=== PATIENT | female | born 1995 | race Caucasian/White ===

== ENCOUNTER 2017-05-15 15:54 | Emergency (ER) | payer BC, MEDICAID ==
[2017-05-15 16:09] VITALS: BP 124/81
[2017-05-15] MEDS ORDERED: diphenhydrAMINE 50 MG/ML SDV IM ONE (16:21)
[2017-05-15] MEDS ORDERED: Metoclopramide 10 MG/2 ML SDV IM ONE (16:21)
[2017-05-15] MEDS ORDERED: Ketorolac 60 MG/2 ML SDV IM ONE (16:21)
--- NOTE | 2017-05-15 16:27 | EDM.PDOC ---
ED HPI GENERAL MEDICAL PROBLEM - General Chief Complaint: Headache Stated Complaint: HEADACHE/VOMITING Time Seen by Provider: 05/15/17 16:23 Source of Information: Reports: Patient History Limitations: Reports: No Limitations - History of Present Illness INITIAL COMMENTS - FREE TEXT/NARRATIVE: 22-year-old female presents for evaluation treatment of a headache. Patient reports that the headaches are located in the bilateral temples. Reports that it started yesterday afternoon. Reports associated symptoms of nausea, vomiting , photophobia, phonophobia, dizziness and neck pain. She reports that she has vomited about 4 times today. No fevers, earaches, sore throat or sinus pressure. Patient has taken Excedrin and Tylenol with no relief. Patient reports a history of migraine headaches and states that this one feels similar. She is not currently on any medications for her migraines. She has had a good appetite and has been eating and drinking like normal. Denies any chest . Reports that her last period was about a week and a half ago. She is not any oral contraceptives. Patient reports that she did have to miss work today due to the severity of her migraine. 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) Other OB/BYN History: menorrhagia Neurological History: Reports: Headaches, Chronic Psychiatric History: Reports: Anxiety, Depression - Past Surgical History GI Surgical History: Reports: Appendectomy Social & Family History - Family History Family Medical History: Noncontributory - Tobacco Use Smoking Status *Q: Current Every Day Smoker Years of Tobacco use: 10 Packs/Tins Daily: 0.5 Used Tobacco, but Quit: Yes Month Tobacco Last Used: may Second Hand Smoke Exposure: No - Caffeine Use Caffeine Use: Reports: Coffee, Energy Drinks, Soda - Alcohol Use Days Per Week of Alcohol Use: 1 Number of Drinks Per Day: 1 Total Drinks Per Week: 1 - Recreational Drug Use Recreational Drug Use: No Recreational Drug Type: Reports: Methamphetamine Recreational Drug Use Frequency: Not Used In Over 6 Months ED ROS GENERAL - Review of Systems Review Of Systems: See Below Constitutional: Denies: Fever, Decreased Appetite HEENT: Reports: Other (reports photophobia and phonophobia). Denies: Ear Pain, Throat Pain Musculoskeletal: Reports: Neck Pain Neurological: Reports: Dizziness. Denies: Syncope - Physical Exam Exam: See Below Exam Limited By: No Limitations General Appearance: Alert, WD/WN, No Apparent Distress Eye Exam: Bilateral Eye: PERRL Ears: Normal External Exam, Normal Canal, Hearing Grossly Normal, Normal TMs Nose: Normal Inspection Throat/Mouth: Normal Inspection, Normal Lips, Normal Voice, No Airway Compromise Respiratory/Chest: No Respiratory Distress, Lungs Clear, Normal Breath Sounds Cardiovascular: Normal Peripheral Pulses, Regular Rate, Rhythm, No Murmur Neuro Exam (Abbreviated): Alert, Oriented, Normal Cognition, Normal Gait Psychiatric: Normal Affect, Normal Mood Skin Exam: Warm, Dry, Normal Color Course - Vital Signs Last Recorded V/S: Last Vital Signs Temp 36.5 C 05/15/17 16:06 Pulse 70 05/15/17 16:06 Resp 18 05/15/17 16:06 BP 124/81 05/15/17 16:06 Pulse Ox 100 05/15/17 16:06 - Orders/Labs/Meds Meds: Medications Discontinued Medications Generic Name Dose Route Start Last Admin Trade Name Samuel PRN Reason Stop Dose Admin Cyclobenzaprine HCl 10 mg 05/15/17 17:35 05/15/17 17:49 Flexeril PO 05/15/17 17:36 10 mg ONETIME ONE Administration Diphenhydramine HCl 50 mg 05/15/17 16:21 05/15/17 16:35 Benadryl IM 05/15/17 16:22 50 mg ONETIME ONE Administration Ketorolac Tromethamine 60 mg 05/15/17 16:21 05/15/17 16:33 Toradol IM 05/15/17 16:22 60 mg ONETIME ONE Administration Metoclopramide HCl 10 mg 05/15/17 16:21 05/15/17 16:32 Reglan IM 05/15/17 16:22 10 mg ONETIME ONE Administration - Re-Assessments/Exams Free Text/Narrative Re-Assessment/Exam: 05/15/17 17:35 Patient reports that her headache is improving. Currently as a 6 or 7 out of 10. Nausea has improved. Gave the options of going home and resting versus from additional medication. Will attempt to control her headache with flexeril as I feel this is likely a tension headache. 05/15/17 19:15 Patient is currently sleeping at this time. 05/15/17 19:45 Patient reports that her headache is gone and feels comfortable going home at this time. Will discharge home. Discharge instructions as documented. Departure - Departure Time of Disposition: 19:45 Disposition: Home, Self-Care 01 Condition: Good Clinical Impression: Tension-type headache - Discharge Information Instructions: Tension Headache, [id number] Referrals: PCP,None [Primary Care Provider] - Forms: ED Department Discharge, ED Return to Work/School Form Additional Instructions: Go home and rest in a dark quiet room. Take [id number] Tylenol or Motrin as needed for pain relief. Follow up with family medicine if migraine headaches continue to be a problem for you. Please return to the ER if your symptoms change or worsen.
[2017-05-15] MEDS ORDERED: Cyclobenzaprine 10 MG Tab PO ONE (17:35)
== END 2017-05-15 20:00 | disposition home or self-care (01) ==
LOC: JD.ED 15:54
DX: G44.209 Tension-type headache, unspecified, not intractable (principal); F17.210 Nicotine dependence, cigarettes, uncomplicated; Z88.0 Allergy status to penicillin; Z79.899 Other long term (current) drug therapy
CPT/HCPCS: 96372; 99283; A9270; J1200; J1885; J2765

== ENCOUNTER 2017-11-14 22:10 | Emergency (ER) | payer OTHER, BC, MEDICAID ==
[2017-11-14 22:16] VITALS: BP 131/86
[2017-11-14] MEDS ORDERED: Lidocaine 1% 10 ML MDV INJECT ONE (22:34)
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
== END 2017-11-14 23:15 | disposition home or self-care (01) ==
LOC: JD.ED 22:10
DX: S01.512A Laceration without foreign body of oral cavity, initial encounter (principal); S13.9XXA Sprain of joints and ligaments of unspecified parts of neck, initial encounter; Z88.0 Allergy status to penicillin; Z79.899 Other long term (current) drug therapy; F17.210 Nicotine dependence, cigarettes, uncomplicated; V47.5XXA Car driver injured in collision with fixed or stationary object in traffic accident, initial encounter; Y92.410 Unspecified street and highway as the place of occurrence of the external cause
CPT/HCPCS: 12011; 99283-25

== ENCOUNTER 2019-01-10 15:51 | Emergency (ER) | payer BC, MEDICAID ==
[2019-01-10 16:02] VITALS: BP 126/72
--- NOTE | 2019-01-10 16:24 | EDM.PDOC ---
ED HPI GENERAL MEDICAL PROBLEM - General Chief Complaint: Genitourinary Problem Stated Complaint: ABDOMINAL PAIN Time Seen by Provider: 01/10/19 16:03 Source of Information: Reports: Patient History Limitations: Reports: No Limitations - History of Present Illness INITIAL COMMENTS - FREE TEXT/NARRATIVE: 23-year-old female presents to emergency room chief complaints of vaginal itching with yellow discharge and suprapubic pain and dysuria for the past week. She reports having unprotected sex but what has been the same partner for the last year. She reports that she's had fever but did not check it. She also complains of nausea and back pain. She reports nothing makes it better or gets worse with touch. She states that she feels that her vagina is raw and irritated. She denies any odor she reports that the patient discharge is yellow and thicker than normal. Onset Date: 01/03/19 Onset Time: 22:00 Duration: Getting Worse, Intermittent Location: Reports: Pelvis Quality: Reports: Ache, Stabbing Improves with: Reports: None Worsens with: Reports: Other (touch) Associated Symptoms: Reports: Fever/Chills, Nausea/Vomiting. 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 Denies: Chills HEENT: Reports: No Symptoms Respiratory: Denies: Shortness of Breath Cardiovascular: Denies: Chest Pain Endocrine: Reports: No Symptoms GI/Abdominal: Reports: Abdominal Pain, Other (Suprapubic pain) : Reports: Discharge (Thick yellow), Dysuria, Other (Vaginal irritation) Musculoskeletal: Reports: Back Pain Skin: Reports: No Symptoms Neurological: Reports: No Symptoms Psychiatric: Reports: No Symptoms Hematologic/Lymphatic: Reports: No Symptoms Immunologic: Reports: No Symptoms ED EXAM, GI/ABD - Physical Exam Exam: See Below Exam Limited By: No Limitations General Appearance: Alert, WD/WN, No Apparent Distress Respiratory/Chest: No Respiratory Distress, Lungs Clear, Normal Breath Sounds, No Accessory Muscle Use, Chest Non-Tender Cardiovascular: Normal Peripheral Pulses, Regular Rate, Rhythm, No Edema, No Gallop, No JVD, No Murmur, No Rub GI/Abdominal Exam: Normal Bowel Sounds, Soft, No Organomegaly, No Distention, No Abnormal Bruit, No Mass, Pelvis Stable, Tender (suprapubic) (Female) Exam: Cervical Discharge, Cervix Motion Tenderness, Vaginal Discharge, Other (thick yellow vaginal discharge. outer vaginal wall irritation noted, no lesions or rash. ). No: Cervical Lesions, Vaginal Lesions Back Exam: CVA Tenderness (L), CVA Tenderness (R) Extremities: Normal Inspection, Normal Range of Motion, Non-Tender, No Pedal Edema, Normal Capillary Refill Neurological: Alert, Oriented, CN II-XII Intact, Normal Cognition, Normal Gait Psychiatric: Normal Affect, Normal Mood Skin Exam: Warm, Dry, Intact, Normal Color, No Rash Lymphatic: No Adenopathy Course - Vital Signs Last Recorded V/S: Last Vital Signs Temp 97.8 F 01/10/19 15:58 Pulse 105 H 01/10/19 15:58 Resp 16 01/10/19 15:58 BP 126/72 01/10/19 15:58 Pulse Ox 98 01/10/19 15:58 - Orders/Labs/Meds Orders: Active Orders 24 hr Category Date Time Status GC/CHLAMYDIA BY PCR [MOLEC] Stat Lab 01/10/19 16:35 Received Labs: Laboratory Tests 01/10/19 01/10/19 Range/Units 16:35 16:35 Urine Color Yellow (Yellow) Urine Appearance Cloudy H (Clear) Urine pH 7.0 (5.0-8.0) Ur Specific [place] 1.025 (1.005-1.030) Urine Protein 1+ H (Negative) Urine Glucose (UA) Negative (Negative) Urine Ketones Negative (Negative) Urine Occult Blood Trace-intact H (Negative) Urine Nitrite Negative (Negative) Urine Bilirubin Negative (Negative) Urine Urobilinogen 0.2 (0.2-1.0) Ur Leukocyte Esterase 2+ H (Negative) Urine RBC 0-5 (0-5) /hpf Urine WBC 10-20 H (0-5) /hpf Ur Squamous Epith Cells 0-5 (0-5) /hpf Urine Bacteria Moderate H (FEW) /hpf Urine Mucus Moderate H (FEW) /hpf Urine Trichomonas Present (NOT SEEN) Urine HCG, Qual Negative (NEGATIVE) Meds: Medications Discontinued Medications Generic Name Dose Route Start Last Admin Trade Name Freq PRN Reason Stop Dose Admin Hydrocodone Bitart/Acetaminophen 1 tab 01/10/19 16:56 01/10/19 17:03 [place] 325-5 Mg PO 01/10/19 16:57 1 tab ONETIME ONE Administration Azithromycin 1,000 mg 01/10/19 17:20 01/10/19 17:57 Zithromax PO 01/10/19 17:21 1,000 mg ONETIME ONE Administration Ceftriaxone Sodium 250 mg 01/10/19 17:18 01/10/19 17:55 Rocephin IM 01/10/19 17:19 250 mg ONETIME ONE Administration Fluconazole 150 mg 01/10/19 16:56 Diflucan PO 01/10/19 16:57 ONETIME ONE - Re-Assessments/Exams Free Text/Narrative Re-Assessment/Exam: 01/10/19 17:15 HCG is negative wet prep and GC pending. 01/10/19 17:23 Urinalysis reveals +1 protein +2 medical Estrace, wet prep is positive for Trichomonas 01/10/19 18:11 patient was treated with Rocephin 250 mg IM and azithromycin 1000 mg by mouth. I will discharge home with Flagyl for her trichomonas. Instructed patient to follow up with her PCP. Instructed patient on practicing safe sex. Instructed patient to return to return for any new or acutely worsening symptoms. Patient verbalized understanding as couple plan for discharge. Patient is stable at time of discharge. Departure - Departure Time of Disposition: 18:12 Disposition: Home, Self-Care 01 Clinical Impression: Acute pelvic inflammatory disease, Trichomonas vaginitis, STD (female) - Discharge Information Prescriptions: metroNIDAZOLE [Flagyl] 500 mg PO Q12H 7 Days #14 tab Instructions: Sexually Transmitted Disease, [id number] Referrals: Radhika Lopez HAND TURNER [Primary Care Provider] - Forms: ED Department Discharge Additional Instructions: You have had been diagnosed with Trichomonas which is a sexually-transmitted disease. I recommend that you practice safe sex. Your gonorrhea and chlamydia results are still pending. He should follow-up with her PCP. Return to the emergency room for any new or acutely worsening symptoms. - My Orders Last 24 Hours: My Active Orders 01/10/19 16:35 GC/CHLAMYDIA BY PCR [MOLEC] Stat - Assessment/Plan Last 24 Hours: My Active Orders 01/10/19 16:35 GC/CHLAMYDIA BY PCR [MOLEC] Stat
[2019-01-10] MEDS ORDERED: Acetaminophen/HYDROcodone 325-5 MG Tab PO ONE (16:56)
[2019-01-10] MEDS ORDERED: Fluconazole 150 MG Tab PO ONE (16:56)
[2019-01-10] MEDS ORDERED: cefTRIAXone 250 MG Vial IM ONE (17:18)
[2019-01-10] MEDS ORDERED: Azithromycin 250 MG Tab PO ONE (17:20)
[2019-01-10 18:23] LABS: C. TRACHOMATIS BY PCR NOT DETECTED; N. GONORRHOEAE BY PCR NOT DETECTED
== END 2019-01-10 18:17 | disposition home or self-care (01) ==
LOC: JD.ED 15:51
DX: A59.01 Trichomonal vulvovaginitis (principal); N73.0 Acute parametritis and pelvic cellulitis; F17.210 Nicotine dependence, cigarettes, uncomplicated; Z98.890 Other specified postprocedural states; Z90.49 Acquired absence of other specified parts of digestive tract; Z88.0 Allergy status to penicillin
CPT/HCPCS: 81001; 81025; 87210; 87491; 87591; 87808; 96372; 99284; A9270; J0696; 99283

== ENCOUNTER 2019-07-23 12:19 | Emergency (ER) | payer BC, MEDICAID ==
[2019-07-23 12:29] VITALS: BP 145/94; PULSE 96
--- NOTE | 2019-07-23 13:08 | EDM.PDOCBH ---
ED HPI GENERAL MEDICAL PROBLEM - General Chief Complaint: Behavioral/Psych Stated Complaint: ANXIETY Time Seen by Provider: 07/23/19 12:24 Source of Information: Reports: Patient, Family History Limitations: Reports: No Limitations - History of Present Illness INITIAL COMMENTS - FREE TEXT/NARRATIVE: Patient is a 24-year-old female who presents with her cousin with complaints of anxiety, inability to concentrate, and not be able to "think straight." Patient states that this has been an issue for her for many years. She was previously diagnosed with adult ADHD and on Adderall, however she has been off of that for about 2 months now. 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 She states that she had been clean for 6 months and then had a relapse 2 days ago at which time she smoked meth. She has been in rehabilitation 3 different times, however this last time she did stop using on her own. She does drink 2-3 alcoholic drinks per night. She denies any thoughts of self-harm or suicidal thoughts, however, she states that she is tired of not being able to function. She is currently employed at [employer] and has been for the past 6 months, however she has never been able to hold a job for more than 6 months at a time. Her cousin, who is with her, states that she was recently diagnosed as bipolar type I and that she exhibited many of the same symptoms that the patient is. They are requesting that she [facility] as the patient does not want to go to [facility] due to past experiences. 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 (See Below) Other VAT CLEANER History: menorrhagia Neurological History: Reports: Headaches, Chronic Psychiatric History: Reports: ADHD, Anxiety, Depression - Past Surgical History HEENT Surgical History: Reports: Oral Surgery GI Surgical History: Reports: Appendectomy Social & Family History - Family History Family Medical History: Noncontributory - Tobacco Use Smoking Status *Q: Current Every Day Smoker Years of Tobacco use: 10 Packs/Tins Daily: 0.5 - Caffeine Use Caffeine Use: Reports: Coffee - Recreational Drug Use Recreational Drug Use: Yes Drug Use in Last 12 Months: Yes Recreational Drug Type: Reports: Heroin, Marijuana/Hashish, Methamphetamine ED ROS GENERAL - Review of Systems Review Of Systems: See Below Constitutional: Reports: No Symptoms HEENT: Reports: No Symptoms Respiratory: Reports: No Symptoms Cardiovascular: Reports: No Symptoms Endocrine: Reports: No Symptoms GI/Abdominal: Reports: No Symptoms : Reports: No Symptoms Musculoskeletal: Reports: No Symptoms Skin: Reports: No Symptoms Neurological: Reports: No Symptoms. Denies: Confusion, Dizziness, Headache Psychiatric: Reports: Anxiety, Mood Lability, Other (inattentive, hyperactive) Hematologic/Lymphatic: Reports: No Symptoms Immunologic: Reports: No Symptoms ED EXAM, BEHAVIORAL HEALTH - Physical Exam Exam: See Below Exam Limited By: No Limitations General Appearance: Alert, WD/WN, Anxious Respiratory/Chest: No Respiratory Distress, Lungs Clear, Normal Breath Sounds, No Accessory Muscle Use, Chest Non-Tender Cardiovascular: Normal Peripheral Pulses, Regular Rate, Rhythm, No Edema, No Murmur Neurological: Alert, Normal Mood/Affect, Normal Cognition Psychiatric: Alert, Normal Cognition, Normal Mood, Oriented, Other (fidgity) COURSE, BEHAVIORAL HEALTH COMP - Course Vital Signs: Last Vital Signs Temp 97.7 F 07/23/19 12:28 Pulse 96 07/23/19 12:28 Resp 20 07/23/19 12:28 BP 145/94 H 07/23/19 12:28 Pulse Ox 100 07/23/19 12:28 Re-Assessment/Re-Exam: Patient is a 24-year-old female who presents with a cousin with complaints of anxiety, inattentiveness, and hyperactivity. Patient states this has been an ongoing issue for her for many years and that she is here because she is tired of not been able to function or even sit still long enough to watch TV. she does have a long history of meth addiction from what she had been clean for the last 6 months up until 2 days ago when she had a relapse. She has not used since 2 days ago. She does drink 2-3 drinks of whiskey Coke a night. She has been through treatment 3 times for her drug addiction. She at one time was on Adderall for adult ADHD, however she has not taken the medication for 2 months. The patient's cousin that is in the room with her was recently diagnosed with bipolar type I and states that she exhibited many of the same symptoms that the patient has been exhibiting. On exam the patient is alert, orientated, and does make appropriate eye contact. She is however quite fidgety and does speak rapidly at times. It does seem that she has a hard time finding what she wants to say at times. She is very forthcoming with answering questions and ultimately would like to be seen by psychiatric [facility] tele-psych. She is adamant that she is not suicidal and does not want to hurt herself, however she is looking for help to be able to function better. I did discuss with the patient that ultimately she does need to see psychiatry in order to be given an appropriate diagnosis and start appropriate treatment. She is aware of this and is looking for a referral to see a psychiatrist. She does not however want to go to [facility] because she has been there in the past and did not like the experience. I did call psychiatric [facility] telepsych which is based out of the [facility] and they were able to schedule her an appointment for Friday07/26/19 at 11:30 AM. I did discuss with the patient that I would send her home with hydroxyzine to be used as needed for anxiety and sleep. I did advise her that this is not going to fix her situation it is very important that she follows up with the appointment. Her cousin who was in the room with her stated that she will be sure that she is there. I will write her a note off from work through Friday to cover her for today as well as for her appointment on Friday. The patient and her cousin verbalized understanding and are in agreement with this plan. Departure - Departure Time of Disposition: 13:21 Disposition: Home, Self-Care 01 Condition: Fair Clinical Impression: Anxiety - Discharge Information *PRESCRIPTION DRUG MONITORING PROGRAM REVIEWED*: No *COPY OF PRESCRIPTION DRUG MONITORING REPORT IN PATIENT DIOMEDES: No Prescriptions: hydrOXYzine HCl [Atarax] 50 mg PO Q12H PRN #10 tab PRN Reason: Anxiety Referrals: Radhika Lopez NP [Primary Care Provider] - Forms: ED Department Discharge, ED Return to Work/School Form Additional Instructions: You were seen in the emergency Department today with complaints of anxiety, restlessness, and inattentiveness. As we discussed, it is important that you obtain a psychiatric consult in order to achieve an appropriate diagnosis and treatment plan. We have scheduled you an appointment on Friday07/26/19 at 11:15 AM with [facility] which is located at the [facility] to have a psychiatric examination. I have prescribed to hydroxyzine to be taken every 12 hours as needed for anxiety over the weekend. Please be aware that this medication is sedating and we recommend that she don't drive or operate any heavy machinery after taking this medication. This medication also should not be mixed with alcohol We recommend that you abstain from all illicit drug use. If you should experience any new or worsening symptoms or any thoughts of self harm, please do not hesitate to return to the emergency department.
== END 2019-07-23 13:45 | disposition home or self-care (01) ==
LOC: JD.ED 12:19
DX: F41.9 Anxiety disorder, unspecified (principal); F17.210 Nicotine dependence, cigarettes, uncomplicated; Z88.0 Allergy status to penicillin
CPT/HCPCS: 99283

== ENCOUNTER 2019-09-19 21:52 | Emergency (ER) | payer MEDICAID ==
--- NOTE | 2019-09-19 22:16 | EDM.PDOC ---
ED HPI GENERAL MEDICAL PROBLEM - General Chief Complaint: Laceration Stated Complaint: RIGHT HAND PINKIE FINGER LACERATION Time Seen by Provider: 09/19/19 22:07 Source of Information: Reports: Patient, RN Notes Reviewed - History of Present Illness INITIAL COMMENTS - FREE TEXT/NARRATIVE: 24 rolled female suffered laceration injury lateral aspect right small finger. She was washing a cup that accidentally broke on her on arrival to ED the bleeding has stopped. No other pain or injury. 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 Neurological History: Reports: Headaches, Chronic Psychiatric History: Reports: ADHD, Anxiety, Depression - Infectious Disease History Infectious Disease History: Reports: Chicken Pox - Past Surgical History HEENT Surgical History: Reports: Oral Surgery GI Surgical History: Reports: Appendectomy Social & Family History - Family History Family Medical History: Noncontributory - Tobacco Use Smoking Status *Q: Current Every Day Smoker Years of Tobacco use: 10 Packs/Tins Daily: 0.5 - Caffeine Use Caffeine Use: Reports: Coffee, Energy Drinks, Tea - Alcohol Use Days Per Week of Alcohol Use: 5 Number of Drinks Per Day: 1 Total Drinks Per Week: 5 - Recreational Drug Use Recreational Drug Use: No ED ROS GENERAL - Review of Systems Review Of Systems: See Below Constitutional: Reports: No Symptoms HEENT: Reports: No Symptoms Respiratory: Reports: No Symptoms GI/Abdominal: Denies: Nausea, Vomiting Musculoskeletal: Reports: Other (Lack injury right small finger) ED EXAM, SKIN/RASH Exam: See Below General Appearance: Alert, No Apparent Distress Head: Atraumatic Neck: Supple Respiratory/Chest: No Respiratory Distress Extremities: Other (1.5 cm long superficial skin laceration ulnar aspect right proximal small finger. There is a skin flap still attached distal margin but otherwise totally avulsed a away from the remainder of the injury. ) Neurological: No Motor/Sensory Deficits Skin: Warm, Dry, Normal Color Course - Vital Signs Last Recorded V/S: Last Vital Signs Temp 97.9 F 09/19/19 22:01 Pulse 91 09/19/19 22:01 Resp 19 09/19/19 22:01 BP 126/75 09/19/19 22:01 Pulse Ox 97 09/19/19 22:01 - Re-Assessments/Exams Free Text/Narrative Re-Assessment/Exam: 09/19/19 22:49. The flap avulsion is superficial, does not involve the deep layers of skin so this will heal well on its own. Patient is comfortable with that plan. Discharge instructions as documented. Departure - Departure Time of Disposition: 22:15 Disposition: Home, Self-Care 01 Condition: Fair Clinical Impression: Finger laceration - Discharge Information Instructions: Laceration Care, Adult, [id number] Referrals: Radhika Lopez NP [Primary Care Provider] - Forms: ED Department Discharge Additional Instructions: The broken glass has pealed a superficial layer of skin off of the lateral aspect of your right small finger. This will heal from the base and from the sides. Keep protected this week with Band-Aid as needed. Have rechecked any sign of infection. Sepsis Event Note - Evaluation Sepsis Screening Result: No Definite Risk - Focused Exam Vital Signs: Vital Signs Temp Pulse Resp BP Pulse Ox 09/19/19 22:01 97.9 F 91 19 126/75 97 Date Exam was Performed: 09/19/19 Time Exam was Performed: 22:47
== END 2019-09-19 22:23 | disposition home or self-care (01) ==
LOC: JD.ED 21:52
CPT/HCPCS: 99281; 99282

== ENCOUNTER 2020-04-30 11:47 | Emergency (ER) | payer MEDICAID ==
[2020-04-30 12:09] VITALS: BP 120/74; PULSE 100
[2020-04-30] MEDS ORDERED: diphenhydrAMINE 50 MG/ML SDV IVPUSH ONE (12:23)
[2020-04-30] MEDS ORDERED: Metoclopramide 10 MG/2 ML SDV IVPUSH ONE (12:23)
[2020-04-30] MEDS ORDERED: Sodium Chloride 0.9% 10 ML Syringe FLUSH PRN (12:23)
[2020-04-30] MEDS ORDERED: Ketorolac 30 MG/ML SDV IVPUSH ONE (12:23)
[2020-04-30] MEDS ORDERED: Sodium Chloride 0.9% 1,000 ML IV ONE (12:23)
--- NOTE | 2020-04-30 12:30 | EDM.PDOC ---
ED HPI GENERAL MEDICAL PROBLEM - General Chief Complaint: Headache Stated Complaint: BACK PAIN/MIGRAINE Time Seen by Provider: 04/30/20 12:13 Source of Information: Reports: Patient, RN Notes Reviewed History Limitations: Reports: No Limitations - History of Present Illness INITIAL COMMENTS - FREE TEXT/NARRATIVE: Patient is a 24-year-old female who presents to the ED for evaluation of her headache. She states that she does have a history of migraines, that is typical for her migraine, but seems to be a little bit worse than what she remembers. She is not had a migraine in a few years. She did take some [id number] Excedrin, her last dose was roughly 3 or 4 hours ago. She is complaining of some nausea and 2 episodes of vomiting this morning, she did eat prior to coming here, this seemed to help with the nausea a little bit. She does note that she has a history of degenerative disc disease, and has been going to PT which seems to be helping a little bit. Her migraine is located in her temples and behind her eyes, states it feels like someone stabbing her with ice pack, and also a lot of pressure like someone squeezing her head in a vice. She states it hurts worse when she moves her head. She is not had any blurred vision or double vision, she does not have any spots in her vision, she is light and sound sensitive. She states she did not sleep much due to the pain last night. She is not had a neurologist to evaluate her migraines before ever. She is having no fevers or chills, cough/shortness of breath. Her primary care provider is Radhika Lopez. 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: Other (See Below) Other ACUTE DIALYSIS REGISTERED NURSE History: menorrhagia Neurological History: Reports: Headaches, Chronic Psychiatric History: Reports: ADHD, Anxiety, Depression - Infectious Disease History Infectious Disease History: Reports: Chicken Pox - Past Surgical History HEENT Surgical History: Reports: Oral Surgery GI Surgical History: Reports: Appendectomy Social & Family History - Family History Family Medical History: Noncontributory - Tobacco Use Smoking Status *Q: Current Every Day Smoker Years of Tobacco use: 8 Packs/Tins Daily: 0.1 - Caffeine Use Caffeine Use: Reports: Coffee - Recreational Drug Use Recreational Drug Use: No ED ROS GENERAL - Review of Systems Review Of Systems: Comprehensive ROS is negative, except as noted in HPI. - Physical Exam Exam: See Below Exam Limited By: No Limitations General Appearance: Alert, WD/WN, No Apparent Distress Eye Exam: Bilateral Eye: EOMI, Normal Inspection, PERRL Respiratory/Chest: No Respiratory Distress, Lungs Clear, Normal Breath Sounds, No Accessory Muscle Use, Chest Non-Tender Cardiovascular: Normal Peripheral Pulses, Regular Rate, Rhythm, No Murmur GI/Abdominal: Normal Bowel Sounds, Soft, Non-Tender, No Distention, No Mass Neuro Exam (Abbreviated): Alert, Oriented, Normal Cognition, No Motor/Sensory Deficits Extremities: Normal Inspection, Normal Capillary Refill Psychiatric: Normal Affect, Normal Mood Skin Exam: Warm, Dry, Intact, Normal Color, No Rash Course - Vital Signs Last Recorded V/S: Last Vital Signs Temp 97.6 F 04/30/20 12:06 Pulse 100 04/30/20 12:06 Resp 16 04/30/20 12:06 BP 120/74 04/30/20 12:06 Pulse Ox 97 04/30/20 12:06 - Orders/Labs/Meds Orders: Active Orders 24 hr Category Date Time Status Peripheral IV Care [RC] . DIRECTED Care 04/30/20 12:23 Ordered Sodium Chloride 0.9% [Saline Flush] Med 04/30/20 12:23 Ordered 10 ml FLUSH ASDIRECTED PRN Peripheral IV Insertion Adult [OM.PC] Routine Oth 04/30/20 12:23 Ordered Medication Orders Sodium Chloride (Saline Flush) 10 ml FLUSH ASDIRECTED PRN PRN Reason: Keep Vein Open Last Admin: 04/30/20 13:07 Dose: 10 ml Documented by: Meds: Medications Generic Name Dose Route Start Last Admin Trade Name Freq PRN Reason Stop Dose Admin Sodium Chloride 10 ml 04/30/20 12:23 04/30/20 13:07 Saline Flush FLUSH 10 ml ASDIRECTED PRN Administration Keep Vein Open Discontinued Medications Generic Name Dose Route Start Last Admin Trade Name Samuel PRN Reason Stop Dose Admin Diphenhydramine HCl 25 mg 04/30/20 12:23 04/30/20 13:11 Benadryl IVPUSH 04/30/20 12:24 25 mg ONETIME ONE Administration Sodium Chloride 1,000 mls @ 999 mls/hr 04/30/20 12:23 04/30/20 13:07 Normal Saline IV 04/30/20 13:23 999 mls/hr ASDIRECTED ONE Administration Ketorolac Tromethamine 30 mg 04/30/20 12:23 04/30/20 13:08 Toradol IVPUSH 04/30/20 12:24 30 mg ONETIME ONE Administration Metoclopramide HCl 10 mg 04/30/20 12:23 04/30/20 13:08 Reglan IVPUSH 04/30/20 12:24 10 mg ONETIME ONE Administration - Re-Assessments/Exams Free Text/Narrative Re-Assessment/Exam: 04/30/20 12:28 Patient presents to the ED for evaluation of her migraine and back pain. She will have IV placed, some fluids, medications for headache, hopefully should provide some relief for her back pain as well. We will discharge her home with general recommendations if the medications seem to work for her. Departure - Departure Time of Disposition: 13:41 Disposition: Home, Self-Care 01 Condition: Good Clinical Impression: Migraine Qualifiers: Migraine type: unspecified Status migrainosus presence: without status migrainosus Intractability: not intractable Qualified Code(s): G43.909 - Migraine, unspecified, not intractable, without status migrainosus - Discharge Information *PRESCRIPTION DRUG MONITORING PROGRAM REVIEWED*: No *COPY OF PRESCRIPTION DRUG MONITORING REPORT IN PATIENT DIOMEDES: No Instructions: Migraine Headache, [id number] Referrals: Radhika Lopez NP [Primary Care Provider] - Forms: ED Department Discharge, ED Return to Work/School Form Additional Instructions: You were evaluated in the ED for your headache. You were given a combination of medications and IV fluid for management. This did seem to provide you pretty good relief of your symptoms. Recommend that you go home and rest in a quiet, darkened room. Try also to keep well hydrated. Please return to the ED if your symptoms should change or worsen. Sepsis Event Note (ED) - Evaluation Sepsis Screening Result: No Definite Risk - Focused Exam Vital Signs: Vital Signs Temp Pulse Resp BP Pulse Ox 04/30/20 12:06 97.6 F 100 16 120/74 97 - My Orders Last 24 Hours: My Active Orders 04/30/20 12:23 Peripheral IV Care [RC] . DIRECTED Sodium Chloride 0.9% [Saline Flush] 10 ml FLUSH ASDIRECTED PRN Peripheral IV Insertion Adult [OM.PC] Routine - Assessment/Plan Last 24 Hours: My Active Orders 04/30/20 12:23 Peripheral IV Care [RC] . DIRECTED Sodium Chloride 0.9% [Saline Flush] 10 ml FLUSH ASDIRECTED PRN Peripheral IV Insertion Adult [OM.PC] Routine
== END 2020-04-30 13:50 | disposition home or self-care (01) ==
LOC: JD.ED 11:47
DX: G43.909 Migraine, unspecified, not intractable, without status migrainosus (principal); F90.9 Attention-deficit hyperactivity disorder, unspecified type; F41.9 Anxiety disorder, unspecified; F32.9 Major depressive disorder, single episode, unspecified; F17.210 Nicotine dependence, cigarettes, uncomplicated; Z88.0 Allergy status to penicillin; Z79.899 Other long term (current) drug therapy
CPT/HCPCS: 96361; 96374; 96375; 99283; J1200; J1885; J2765; J7030

== ENCOUNTER 2020-09-16 19:16 | Emergency (ER) | payer MEDICAID ==
[2020-09-16 19:44] VITALS: BP 124/77; PULSE 90
--- NOTE | 2020-09-16 20:33 | EDM.PDOC ---
ED HPI GENERAL MEDICAL PROBLEM - General Chief Complaint: Back Pain or Injury Stated Complaint: BACK PAIN Time Seen by Provider: 09/16/20 20:10 Source of Information: Reports: Patient, RN Notes Reviewed History Limitations: Reports: No Limitations - History of Present Illness INITIAL COMMENTS - FREE TEXT/NARRATIVE: Patient is a 25-year-old female who presents to the ED for the evaluation of her mid to upper back pain, that radiates into her chest. Patient notes she has a history of degenerative disc disease, and has had pain and numbness to the right mid back for quite some time. She is concerned tonight, because it is radiated forward to her chest and she thinks there might be some "swelling at the bottom of her sternum". She thinks maybe she could have a pinched nerve or some other nerve issue. She denies any traumas, near slips or falls. She does have a history of sciatica in her legs however this does not seem to be causing an issue at this time. She did try a chiropractor, last week or the week before but has not been since. She has not had any other sick-like symptoms he was or chills, cough or shortness of breath. 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 Neurological History: Reports: Headaches, Chronic Psychiatric History: Reports: ADHD, Anxiety, Depression - Infectious Disease History Infectious Disease History: Reports: Chicken Pox - Past Surgical History HEENT Surgical History: Reports: Oral Surgery GI Surgical History: Reports: Appendectomy Social & Family History - Family History Family Medical History: No Pertinent Family History - Tobacco Use Tobacco Use Status *Q: Current Every Day Tobacco User Years of Tobacco use: 1 Packs/Tins Daily: 0.5 - Caffeine Use Caffeine Use: Reports: Coffee - Recreational Drug Use Recreational Drug Use: No ED ROS GENERAL - Review of Systems Review Of Systems: Comprehensive ROS is negative, except as noted in HPI. ED EXAM, UPPER BACK/NECK PAIN - Physical Exam Exam: See Below Exam Limited By: No Limitations General Appearance: Alert, WD/WN, No Apparent Distress Nexus Criteria: No: Posterior, Midline Cervical Tenderness, Evidence of Intoxication, Altered Level of Consciousness, Focal Neurological Deficit, Painful Distraction Injuries Cardiovascular/Respiratory: Regular Rate, Rhythm, No M/R/G, Normal Peripheral Pulses, No JVD, Normal Breath Sounds, No Respiratory Distress, Other (chest tenderness throughout the anterior chest, mainly close to lower sternal border.) GI/Abdominal: Normal Bowel Sounds, Soft, Non-Tender, No Distention, No Mass Extremities: Normal Inspection, Normal Capillary Refill 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 This presents clinically like costochondritis. We will get her on a course of prednisone for ongoing management and have her follow-up with her regular care provider in a few days if not much better. Departure - Departure Time of Disposition: 20:31 Disposition: Home, Self-Care 01 Condition: Good Clinical Impression: Costochondral chest pain - Discharge Information *PRESCRIPTION DRUG MONITORING PROGRAM REVIEWED*: No *COPY OF PRESCRIPTION DRUG MONITORING REPORT IN PATIENT DIOMEDES: No Prescriptions: predniSONE 20 mg PO ASDIRECTED #15 tab Instructions: Nonspecific Chest Pain, Adult, [id number] Referrals: Radhika Lopez NP [Primary Care Provider] - Forms: ED Department Discharge, ED Return to Work/School Form Additional Instructions: You were evaluated in the ER today for your mid/upper back pain that radiates into your chest. This is felt likely due to costochondritis in nature, which is an inflammation of the nerve lining associated with your rib cage. Treatment of this is anti- inflammatories, since you are already on meloxicam, we will go ahead and start you on a stronger anti-inflammatory, will start you on oral steroid, prednisone, 1 tablet 2 times a day for the first 5 days and then 1 tablet once a day for the last 5 days. Recommend you follow-up with a chiropractor, sometime Early next week, to have a few adjustments this week to see also if this does not help relieve some of your symptoms. If things are not getting much better with these conservative measures, recommend you follow-up with your regular care provider for reevaluation and further medical management as deemed warranted. Please return to the ER at any time if symptoms change or worsen. Sepsis Event Note (ED) - Evaluation Sepsis Screening Result: No Definite Risk - Focused Exam Vital Signs: Vital Signs Temp Pulse Resp BP Pulse Ox 09/16/20 19:41 97.7 F 90 16 124/77 98
== END 2020-09-16 20:45 | disposition home or self-care (01) ==
LOC: JD.ED 19:16
DX: R07.1 Chest pain on breathing (principal); Z72.0 Tobacco use; Z88.0 Allergy status to penicillin
CPT/HCPCS: 99283

== ENCOUNTER 2020-10-15 01:26 | Emergency (ER) | payer MEDICAID ==
[2020-10-15 01:50] VITALS: BP 149/94; PULSE 105
--- NOTE | 2020-10-15 02:07 | EDM.PDOC ---
ED HPI GENERAL MEDICAL PROBLEM - General Chief Complaint: Wound Recheck Stated Complaint: LIP PAIN Time Seen by Provider: 10/15/20 01:53 Source of Information: Reports: Patient History Limitations: Reports: No Limitations - History of Present Illness INITIAL COMMENTS - FREE TEXT/NARRATIVE: This is a 25-year-old female. She had lip injections yesterday and she was told by the person that if she notices any sort of blanching of the skin or whiteness of the lips she is to give them a call. She noted this morning some of that going on so she gave him a call but nobody would answer. So she went on [place] and got frightened by what she found and so she comes to the ER for evaluation. Her lips are not hurting they are not particularly swollen and there is no other acute complaints. 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 (See Below) Other SIZER MACHINE History: menorrhagia Neurological History: Reports: Headaches, Chronic Psychiatric History: Reports: ADHD, Anxiety, Depression - Infectious Disease History Infectious Disease History: Reports: Chicken Pox - Past Surgical History HEENT Surgical History: Reports: Oral Surgery GI Surgical History: Reports: Appendectomy Social & Family History - Family History Family Medical History: No Pertinent Family History - Tobacco Use Tobacco Use Status *Q: Current Every Day Tobacco User Years of Tobacco use: 5 Packs/Tins Daily: 0.1 - Caffeine Use Caffeine Use: Reports: Coffee - Recreational Drug Use Recreational Drug Use: No ED ROS GENERAL - Review of Systems Review Of Systems: See Below Constitutional: Denies: Fever, Chills HEENT: Reports: Other (Lip injections) Respiratory: Denies: Shortness of Breath, Cough Cardiovascular: Reports: No Symptoms Endocrine: Reports: No Symptoms GI/Abdominal: Reports: No Symptoms : Reports: No Symptoms Musculoskeletal: Reports: No Symptoms Skin: Reports: No Symptoms Neurological: Reports: No Symptoms Psychiatric: Reports: No Symptoms ED EXAM, GENERAL - Physical Exam Exam: See Below Exam Limited By: No Limitations General Appearance: Alert, WD/WN, No Apparent Distress Eye Exam: Bilateral Eye: Normal Inspection Ears: Normal External Exam Nose: Normal Inspection Throat/Mouth: Normal Voice, No Airway Compromise, Other (Her upper and lower lip have little areas where there is slightly less rubric than the others where she had the injections but they are not blanched white. When I press on these little patches they do yvrose out and pink back up which means she still has blood flow. This is both on the upper and the lower lips.) Head: Normocephalic Neck: Supple Respiratory/Chest: No Respiratory Distress Back Exam: Full Range of Motion Extremities: Normal Inspection, Normal Range of Motion Neurological: Alert, Oriented Psychiatric: Anxious Skin Exam: Warm, Dry Course - Vital Signs Last Recorded V/S: Last Vital Signs Temp 98.2 F 10/15/20 01:46 Pulse 105 H 10/15/20 01:46 Resp 16 10/15/20 01:46 BP 149/94 H 10/15/20 01:46 Pulse Ox 99 10/15/20 01:46 Departure - Departure Time of Disposition: 02:04 Disposition: Home, Self-Care 01 Condition: Good Clinical Impression: Lip hypertrophy - Discharge Information *PRESCRIPTION DRUG MONITORING PROGRAM REVIEWED*: Not Applicable *COPY OF PRESCRIPTION DRUG MONITORING REPORT IN PATIENT DIOMEDES: Not Applicable Referrals: Radhika Lopez NP [Primary Care Provider] - Additional Instructions: When you get home put a washcloth under the warm water of your sink and not hot water because you do not want to burn yourself and then put it on your lips to help with the blood supply in those areas. 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
== END 2020-10-15 02:13 | disposition home or self-care (01) ==
LOC: JD.ED 01:26
DX: K13.0 Diseases of lips (principal); Z72.0 Tobacco use; Z88.0 Allergy status to penicillin
CPT/HCPCS: 99282; 99283

== ENCOUNTER 2021-06-16 13:24 | Emergency (ER) | payer MEDICAID ==
[2021-06-16 13:49] VITALS: BP 127/83; PULSE 70
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
--- NOTE | 2021-06-17 08:00 | CT ---
Head CT Technique: Multiple axial sections through the brain were obtained. Intravenous contrast was not utilized. Reconstructed coronal and sagittal images were obtained. Comparison: Prior head CT study of 08/04/13. Findings: Ventricles along with basal cisterns and sulci over the convexities are within normal limits for the patient's age. No abnormal parenchymal densities are seen. No evidence of intracranial hemorrhage is seen. No midline shift or mass-effect is seen. Visualized mastoid and paranasal sinuses show nothing acute. No acute calvarial abnormality is appreciated. Impression: 1. No abnormality is identified on noncontrast head CT study. Diagnostic code #1 I agree with preliminary report from [facility], finalized on 06/16/21, 3:49 PM CDT, code 1
== END 2021-06-16 15:40 | disposition home or self-care (01) ==
LOC: JD.ED 13:24
DX: S05.12XA Contusion of eyeball and orbital tissues, left eye, initial encounter (principal); Z88.0 Allergy status to penicillin; Z72.0 Tobacco use; Z79.899 Other long term (current) drug therapy; W18.09XA Striking against other object with subsequent fall, initial encounter
CPT/HCPCS: 70450; 70450-26; 99283-25

== ENCOUNTER 2021-08-27 13:46 | Emergency (ER) | payer MEDICAID ==
[2021-08-27 14:41] VITALS: BP 119/77; PULSE 91
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
== END 2021-08-27 16:19 | disposition home or self-care (01) ==
LOC: JD.ED 13:46
DX: S00.03XA Contusion of scalp, initial encounter (principal); S00.12XA Contusion of left eyelid and periocular area, initial encounter; S00.11XA Contusion of right eyelid and periocular area, initial encounter; Z88.0 Allergy status to penicillin; V49.10XA Passenger injured in collision with unspecified motor vehicles in nontraffic accident, initial encounter; Y92.410 Unspecified street and highway as the place of occurrence of the external cause
CPT/HCPCS: 70450; 70450-26; 99283-25

== ENCOUNTER 2022-02-05 03:30 | Emergency (ER) | payer MEDICAID ==
[2022-02-05 03:50] VITALS: BP 114/71; PULSE 88
== END 2022-02-05 04:18 | disposition home or self-care (01) ==
LOC: JD.ED 03:30
DX: G89.29 Other chronic pain (principal); M54.2 Cervicalgia; Z87.891 Personal history of nicotine dependence; Z28.310 Unvaccinated for COVID-19; Z88.0 Allergy status to penicillin
CPT/HCPCS: 99283

== ENCOUNTER 2022-02-09 22:52 | Emergency (ER) | payer MEDICAID ==
[2022-02-09 23:08] VITALS: BP 140/96; PULSE 99
== END 2022-02-10 01:10 | disposition home or self-care (01) ==
LOC: JD.ED 22:52
DX: M47.816 Spondylosis without myelopathy or radiculopathy, lumbar region (principal); Z88.0 Allergy status to penicillin; Z28.310 Unvaccinated for COVID-19; Z86.16 Personal history of COVID-19
CPT/HCPCS: 72110; 72110-26; 99282; 99283

== ENCOUNTER 2023-05-26 18:53 | Emergency (ER) | payer MEDICAID ==
[2023-05-26 19:04] VITALS: BP 146/86; PULSE 107
== END 2023-05-26 19:48 | disposition home or self-care (01) ==
LOC: JD.ED 18:53
DX: T63.441A Toxic effect of venom of bees, accidental (unintentional), initial encounter (principal)
CPT/HCPCS: 99282

== ENCOUNTER 2024-03-21 20:30 | Emergency (ER) | payer MEDICAID ==
[2024-03-21 21:30] VITALS: BP 127/82; PULSE 89
== END 2024-03-21 21:30 | disposition home or self-care (01) ==
LOC: JD.ED 20:30
DX: L70.0 Acne vulgaris (principal); Z86.16 Personal history of COVID-19; Z79.899 Other long term (current) drug therapy; Z88.0 Allergy status to penicillin
CPT/HCPCS: 99283

== ENCOUNTER 2024-10-24 14:18 | Emergency (ER) | payer MEDICAID ==
[2024-10-24] MEDS: Ketorolac 30 MG/ML SDV IVPUSH ONE (15:08)
[2024-10-24 15:40] LABS: BASOPHILS PERCENT AUTO 0.7 % (0.0-1.0); EOSINOPHILS PERCENT AUTO 0.5 % (0.0-6.0); HEMATOCRIT 40.4 % (37.0-47.0); HEMOGLOBIN 13.3 gm/dl (12.0-16.0); IMMATURE GRAN ABSOLUTE AUTO 0.01 K/mm3 (0.00-0.05); IMMATURE GRAN PERCENT AUTO 0.2 % (0.0-0.4); LYMPHOCYTES ABSOLUTE AUTO 1.4 K/mm3 (1.0-4.8); LYMPHOCYTES PERCENT AUTO 24.1 % (24.0-44.0); MEAN CORPUSCULAR HEMOGLOBIN 27.8 pg (28.0-32.0); MEAN CORPUSCULAR HGB CONC 32.9 g/dl (32.0-36.0); MEAN CORPUSCULAR VOLUME 84.5 fl (83.0-99.0); MEAN PLATELET VOLUME 9.8 fl (9.4-12.3); MONOCYTES ABSOLUTE AUTO 0.4 K/mm3 (0.0-0.8); MONOCYTES PERCENT AUTO 6.7 % (0.0-8.0); NEUTROPHILS ABSOLUTE AUTO 3.8 K/mm3 (1.8-7.7); NEUTROPHILS PERCENT AUTO 67.8 % (41.0-71.0); PLATELET COUNT,PLT 265 K/mm3 (150-400); RED BLOOD CELL COUNT 4.78 M/mm3 (4.10-5.30); WHITE BLOOD CELL COUNT,WBC 5.65 K/mm3 (3.9-11.3)
[2024-10-24 16:08] LABS: A/G RATIO 1.1 (1-2); ALBUMIN 4.1 g/dl (3.4-5.0); ANION GAP 13.7 (5-15); BILIRUBIN TOTAL 0.9 mg/dL (0.2-1.0); BUN/CREATININE RATIO 16.3 (14-18); CALCIUM 8.8 mg/dL (8.5-10.1); CREATININE 0.8 mg/dL (0.55-1.02); EST CRCL DRUG DOSING (CG) 76.89 mL/min; MAGNESIUM 1.9 mg/dL (1.8-2.4); POTASSIUM,K 3.7 mEq/L (3.5-5.1); PROTEIN TOTAL,TP 7.9 g/dl (6.4-8.2)
[2024-10-24 17:27] VITALS: BP 122/82; PULSE 98
== END 2024-10-24 18:10 | disposition home or self-care (01) ==
LOC: JD.ED 14:18
DX: M40.202 Unspecified kyphosis, cervical region (principal); R20.2 Paresthesia of skin; Z86.16 Personal history of COVID-19; Z90.49 Acquired absence of other specified parts of digestive tract; Z88.0 Allergy status to penicillin; Z79.899 Other long term (current) drug therapy
CPT/HCPCS: 36415; 80053; 83735; 85025; 99284

== ENCOUNTER 2025-04-16 18:43 | Emergency (ER) | payer MEDICAID ==
[2025-04-16 18:59] VITALS: BP 120/89; PULSE 147
[2025-04-16] MEDS ORDERED: Sodium Chloride 0.9% 10 ML Syringe FLUSH PRN (19:23)
[2025-04-16] MEDS: LORazepam 2 MG/ML SDV IVPUSH ONE (19:40)
[2025-04-16 19:47] LABS: BASOPHILS ABSOLUTE AUTO 0.1 K/mm3 (0.0-0.2); BASOPHILS PERCENT AUTO 0.9 % (0.0-1.0); EOSINOPHILS ABSOLUTE AUTO 0.1 K/mm3 (0.0-0.4); EOSINOPHILS PERCENT AUTO 1.6 % (0.0-6.0); IMMATURE GRAN ABSOLUTE AUTO 0.01 K/mm3 (0.00-0.05); IMMATURE GRAN PERCENT AUTO 0.1 % (0.0-0.4); LYMPHOCYTES ABSOLUTE AUTO 2.5 K/mm3 (1.0-4.8); LYMPHOCYTES PERCENT AUTO 37.6 % (24.0-44.0); MEAN PLATELET VOLUME 9.7 fl (9.4-12.3); MONOCYTES ABSOLUTE AUTO 0.6 K/mm3 (0.0-0.8); MONOCYTES PERCENT AUTO 8.9 % (0.0-8.0); NEUTROPHILS ABSOLUTE AUTO 3.4 K/mm3 (1.8-7.7); NEUTROPHILS PERCENT AUTO 50.9 % (41.0-71.0); NRBC ABSOLUTE 0.00 (0.00-0.02); NRBC PERCENT 0.0 % (0.0-0.2); PLATELET COUNT,PLT 380 K/mm3 (150-400); RED BLOOD CELL COUNT 4.85 M/mm3 (4.10-5.30); WHITE BLOOD CELL COUNT,WBC 6.71 K/mm3 (3.9-11.3)
[2025-04-16 20:21] LABS: A/G RATIO 1.0 (1-2); ALANINE AMINOTRANSFERASE,ALT 46.0 U/L (14-59); ASPARTATE AMNIOTRANSFERASE,AST 30.0 U/L (15-37); BILIRUBIN TOTAL 0.7 mg/dL (0.2-1.0); BLOOD UREA NITROGEN,BUN 14.0 mg/dL (7-18); CARBON DIOXIDE,CO2 20.0 mEq/L (21-32); CHLORIDE,CL 102.0 mEq/L (98-107); CREATININE 1.1 mg/dL (0.55-1.02); EST CRCL DRUG DOSING (CG) 55.92 mL/min; ESTIMATED GFR 69.0 mL/min (>60); GLUCOSE RANDOM 202.0 mg/dL (70-99); POTASSIUM,K 3.3 mEq/L (3.5-5.1); PROTEIN TOTAL,TP 8.2 g/dl (6.4-8.2); SODIUM,NA 137.0 mEq/L (136-145); TROPONIN I HIGH SENSITIVITY 6.0 pg/mL (<=51)
[2025-04-16] MEDS: Potassium Chloride 20 MEQ Tab.ER PO ONE (21:19)
== END 2025-04-16 21:28 | disposition home or self-care (01) ==
LOC: JD.ED 18:43
DX: M25.551 Pain in right hip (principal); F41.0 Panic disorder [episodic paroxysmal anxiety]; Z79.899 Other long term (current) drug therapy; Z88.0 Allergy status to penicillin; Z90.49 Acquired absence of other specified parts of digestive tract; X58.XXXA Exposure to other specified factors, initial encounter
CPT/HCPCS: 36415; 71045; 73502; 80053; 84484; 85025; 93005; 96374; 99285; A9270; J2060

== ENCOUNTER 2025-07-06 17:00 | Emergency (ER) | payer MEDICAID ==
[2025-07-06] MEDS ORDERED: Iopamidol 612 MG/ML 30 ML SDV IVPUSH ONE (17:47)
[2025-07-06] MEDS: Sodium Chloride 0.9% 10 ML Syringe FLUSH ONE (18:42)
[2025-07-06] MEDS: Iopamidol 612 MG/ML 100 ML Bottle IVPUSH ONE (18:42)
[2025-07-06 20:26] VITALS: BP 126/72; PULSE 92
== END 2025-07-06 19:35 | disposition home or self-care (01) ==
LOC: JD.ED 17:00
DX: S16.1XXA Strain of muscle, fascia and tendon at neck level, initial encounter (principal); F17.200 Nicotine dependence, unspecified, uncomplicated; Z88.0 Allergy status to penicillin; Z90.49 Acquired absence of other specified parts of digestive tract; X58.XXXA Exposure to other specified factors, initial encounter
CPT/HCPCS: 70491; 81025; 99284; Q9967; 99283